=== PATIENT | female | born 1945 | race Caucasian/White ===

== ENCOUNTER 2019-08-18 08:56 | Inpatient (IN) | payer MEDICARE, BC ==
[~2019-08-18] VITALS: Ht 170.2 cm; Wt 72.7 kg
[2019-08-18 09:52] LABS: EOSINOPHILS # (AUTO) 0.2 X10'3 (0-0.9); HEMOGLOBIN 12.6 g/dl (12.0-16.0); MEAN CORPUSCULAR HGB CONC 34.7 g/dL (33.0-36.5); MONOCYTES # (AUTO) 0.5 X10'3 (0-0.9); RED CELL DISTRIBUTION WIDTH 13.1 % (11.5-14.5)
[2019-08-18 09:54] LABS: BASOPHILS % (AUTO) 0.8 % (0-1); EOSINOPHILS % (AUTO) 2.9 % (0-6); HEMATOCRIT 36.2 % (35.0-45.0); LYMPHOCYTES # (AUTO) 1.7 X10'3 (1.1-4.8); LYMPHOCYTES % (AUTO) 31.1 % (21-51); MEAN CORPUSCULAR HEMOGLOBIN 30.7 PG (27.0-31.0); MEAN CORPUSCULAR VOLUME 88.6 FL (78-98); MEAN PLATELET VOLUME 7.9 FL (7.4-10.4); MONOCYTES % (AUTO) 9.2 % (2-12); PLATELET COUNT 282 X10'3 (140-440); RED BLOOD COUNT 4.09 X10'6 (4.20-5.60); WHITE BLOOD COUNT 5.4 X10'3 (4.5-11.0)
[2019-08-18] MEDS ORDERED: LORazepam 2 mg/ml vial IV ONE (10:00)
[2019-08-18 10:02] LABS: PARTIAL THROMBOPLASTIN TIME 43 SECONDS (22-32)
[2019-08-18 10:04] LABS: ALANINE AMINOTRANSFERASE 36 U/L (12-78); ALBUMIN 3.6 G/DL (3.4-5.0); ALBUMIN/GLOBULIN RATIO 1.2 (1.1-1.5); ALKALINE PHOSPHATASE 73 IU/L (46-116); ANION GAP 6 (8-16); ASPARTATE AMINO TRANSFERASE 26 U/L (10-37); BILIRUBIN,TOTAL 0.3 MG/DL (0.1-1.0); BLOOD UREA NITROGEN 17 MG/DL (7-18); CALCIUM 8.2 MG/DL (8.5-10.1); CHLORIDE 105 MMOL/L (99-107); CREATININE 1.31 MG/DL (0.40-0.90); GLUCOSE 95 MG/DL (70-104); POTASSIUM 4.5 MMOL/L (3.5-5.1); SODIUM 137 MMOL/L (135-145); TOTAL CARBON DIOXIDE 25.6 MMOL/L (24-32); TOTAL PROTEIN 6.6 G/DL (6.4-8.2); eGFR 40 ML/MIN
[2019-08-18] MEDS ORDERED: normal saline 1000ML IV soln IVB ONE (10:35)
[2019-08-18] MEDS ORDERED: diltiazem 5mg/ml 5ml inj. IV ONE ×2 (10:35→11:10)
--- NOTE | 2019-08-18 11:11 | NUR ---
provider gave verbal order for 10mg of diltiazem
[2019-08-18] MEDS ORDERED: diltiazem-D5W 125mg/125ml 125 ML IV PRN (12:35)
[2019-08-18] MEDS: diltiazem-NS 100mg/100ml 100 ML IV PRN (13:17)
[2019-08-18] MEDS ORDERED: PROP10TA10 PO (13:28)
[2019-08-18] MEDS ORDERED: PROP40TA72 PO (13:28)
[2019-08-18] MEDS ORDERED: GUAI600T45 PO (13:30)
[2019-08-18] MEDS ORDERED: FEXO180T94 PO (13:31)
[2019-08-18] MEDS ORDERED: WARF5TAB PO (13:33)
[2019-08-18] MEDS ORDERED: WARF10TA50 PO (13:33)
[2019-08-18] MEDS ORDERED: ACET-2119 PO (13:52)
[2019-08-18] MEDS ORDERED: HYDROcodone/acetaminophen 10/325mg tab PO PRN (14:25)
[2019-08-18] MEDS ORDERED: HYDROcodone/acetaminophen 5mg/325mg tablet PO PRN (14:25)
[2019-08-18] MEDS ORDERED: ondansetron/PF 4mg/2ml inj IV PRN (14:25)
[2019-08-18] MEDS ORDERED: diltiazem-D5W 125mg/125ml 125 ML IV SCH (14:25)
[2019-08-18] MEDS ORDERED: metoclopramide 5 mg/ml inj IV PRN (14:25)
[2019-08-18] MEDS ORDERED: magnesium 2GM in 50ml NS 50 ML IV PRN (14:25)
[2019-08-18] MEDS ORDERED: magnesium Cl slow-release 64mg tablet PO PRN (14:25)
[2019-08-18] MEDS ORDERED: bisacodyl 10mg suppository rectal RC PRN (14:25)
[2019-08-18] MEDS ORDERED: magnesium 4gm in 100ml NS 100 ML IV PRN (14:25)
[2019-08-18] MEDS ORDERED: magnesium hydroxide 30ml (MOM) UD suspension PO PRN (14:25)
[2019-08-18] MEDS ORDERED: acetaminophen 325mg tablet PO PRN (14:25)
[2019-08-18] MEDS ORDERED: potassium CL 10mEq/100ml bag 100 ML IV PRN ×2 (14:25)
[2019-08-18] MEDS ORDERED: acetaminophen 650mg rectal suppository RC PRN (14:25)
[2019-08-18] MEDS ORDERED: potassium Cl 20 mEq SR tablet PO PRN ×2 (14:25)
--- NOTE | 2019-08-18 15:41 | NUR ---
Patient going to room 307. I have received report from CLOVIS Montero and had the opportunity to ask questions and assume patient care.
[2019-08-18 16:00] VITALS: BP 126/59
[2019-08-18] MEDS: normal saline 1000ml 1,000 ML IV SCH (16:00)
[2019-08-18 16:19] LABS: PHOSPHORUS 2.8 MG/DL (2.3-4.5)
[2019-08-18 18:00] VITALS: BP 136/69
--- NOTE | 2019-08-18 18:00 | NUR ---
Problems reprioritized. Patient report given, questions answered & plan of care reviewed with CLOVIS Bernardo.
--- NOTE | 2019-08-18 18:00 | NUR ---
Patient in room MED 307. I have received report from CLOVIS Eckert and had the opportunity to ask questions and assume patient care.
[2019-08-18] MEDS: docusate sod 100mg capsule PO SCH (19:26)
[2019-08-18 20:00] VITALS: BP 115/66
[2019-08-18] MEDS: K and/or MAG REPLACEMENT MC SCH (20:00)
[2019-08-18 22:00] VITALS: BP 135/76
[2019-08-18] MEDS: mag hydrox/Alum hydrox/simeth 30ml oral suspension PO PRN (22:38)
[2019-08-18] MEDS: temazepam 15mg capsule PO PRN (22:38)
[2019-08-19] VITALS (13 sets, daily range): BP systolic 116–147; BP diastolic 51–79
[2019-08-19] MEDS: acetaminophen 325mg tablet PO PRN ×2 (03:04→17:19)
[2019-08-19 03:26] LABS: PARTIAL THROMBOPLASTIN TIME 42 SECONDS (22-32)
[2019-08-19 03:28] LABS: ALANINE AMINOTRANSFERASE 31 U/L (12-78); ALBUMIN 3.2 G/DL (3.4-5.0); ALBUMIN/GLOBULIN RATIO 1.1 (1.1-1.5); ALKALINE PHOSPHATASE 67 IU/L (46-116); ANION GAP 6 (8-16); ASPARTATE AMINO TRANSFERASE 23 U/L (10-37); BILIRUBIN,TOTAL 0.2 MG/DL (0.1-1.0); BLOOD UREA NITROGEN 13 MG/DL (7-18); BUN/CREATININE RATIO 11.5 (6.6-38.0); CALCIUM 7.8 MG/DL (8.5-10.1); CHLORIDE 109 MMOL/L (99-107); CHOL/HDL RATIO 4.1 (0.00-4.99); CHOLESTEROL 169 MG/DL (0-200); CREATININE 1.13 MG/DL (0.40-0.90); GLUCOSE 92 MG/DL (70-104); HDL CHOLESTEROL 41 MG/DL (35-60); LDL CHOLESTEROL 84 MG/DL (50-100); MAGNESIUM 1.9 MG/DL (1.5-2.4); PHOSPHORUS 2.5 MG/DL (2.3-4.5); POTASSIUM 4.1 MMOL/L (3.5-5.1); SODIUM 140 MMOL/L (135-145); TOTAL CARBON DIOXIDE 25.4 MMOL/L (24-32); TRIGLYCERIDES 155 MG/DL (20-135); eGFR 47 ML/MIN
[2019-08-19] MEDS: diltiazem-NS 100mg/100ml 100 ML IV PRN ×2 (03:41→23:05)
[2019-08-19 03:53] LABS: BASOPHILS # (AUTO) 0.1 X10'3 (0-0.2); EOSINOPHILS # (AUTO) 0.2 X10'3 (0-0.9); EOSINOPHILS % (AUTO) 3.1 % (0-6); HEMATOCRIT 34.5 % (35.0-45.0); HEMOGLOBIN 11.9 g/dl (12.0-16.0); LYMPHOCYTES # (AUTO) 2.2 X10'3 (1.1-4.8); LYMPHOCYTES % (AUTO) 34.1 % (21-51); MEAN CORPUSCULAR HEMOGLOBIN 30.9 PG (27.0-31.0); MEAN CORPUSCULAR HGB CONC 34.5 g/dL (33.0-36.5); MEAN CORPUSCULAR VOLUME 89.7 FL (78-98); MEAN PLATELET VOLUME 8.1 FL (7.4-10.4); MONOCYTES # (AUTO) 0.6 X10'3 (0-0.9); MONOCYTES % (AUTO) 8.7 % (2-12); NEUTROPHILS # (AUTO) 3.5 X10'3 (1.8-7.7); NEUTROPHILS % (AUTO) 53.1 % (42-75); PLATELET COUNT 262 X10'3 (140-440); RED BLOOD COUNT 3.84 X10'6 (4.20-5.60); RED CELL DISTRIBUTION WIDTH 13.4 % (11.5-14.5); WHITE BLOOD COUNT 6.6 X10'3 (4.5-11.0)
[2019-08-19] MEDS: normal saline 1000ml 1,000 ML IV SCH ×2 (05:05→18:03)
--- NOTE | 2019-08-19 06:19 | NUR ---
Problems reprioritized. Patient report given, questions answered & plan of care reviewed with CLOVIS Silverio.
--- NOTE | 2019-08-19 06:20 | NUR ---
Patient in room MED 307. I have received report from CLOVIS Bernardo and had the opportunity to ask questions and assume patient care.
[2019-08-19] MEDS ORDERED: warfarin 5mg tablet PO SCH (08:00)
[2019-08-19] MEDS ORDERED: propranolol 10mg tablet PO SCH (08:00)
[2019-08-19] MEDS: K and/or MAG REPLACEMENT MC SCH ×2 (08:02→19:26)
[2019-08-19] MEDS: docusate sod 100mg capsule PO SCH ×2 (08:06→20:04)
[2019-08-19] MEDS ORDERED: magnesium 2GM in 50ml NS 50 ML IV ONE (10:35)
[2019-08-19] MEDS: propafenone 150mg tablet PO SCH ×3 (11:15→23:01)
--- NOTE | 2019-08-19 17:37 | NUR ---
Attempted to measure output all day with HAT in toilet. Patient "missed" the hat and I was not able to measure output accurately. Patient had numerous voids.
--- NOTE | 2019-08-19 18:10 | NUR ---
Patient in room MED 307. I have received report from Nusrat BRANNON and had the opportunity to ask questions and assume patient care.
--- NOTE | 2019-08-19 18:19 | NUR ---
Problems reprioritized. Patient report given, questions answered & plan of care reviewed with CLOVIS Birch.
[2019-08-19] MEDS: temazepam 15mg capsule PO PRN (23:01)
[2019-08-19] MEDS ORDERED: PROP150T2 (23:33)
[2019-08-20] VITALS (16 sets, daily range): BP systolic 125–148; BP diastolic 51–94
[2019-08-20 02:14] LABS: BASOPHILS % (AUTO) 0.5 % (0-1); EOSINOPHILS # (AUTO) 0.2 X10'3 (0-0.9); EOSINOPHILS % (AUTO) 3.1 % (0-6); HEMATOCRIT 33.7 % (35.0-45.0); HEMOGLOBIN 11.8 g/dl (12.0-16.0); LYMPHOCYTES % (AUTO) 29.2 % (21-51); MEAN CORPUSCULAR HEMOGLOBIN 31.1 PG (27.0-31.0); MEAN CORPUSCULAR HGB CONC 35.1 g/dL (33.0-36.5); MEAN CORPUSCULAR VOLUME 88.6 FL (78-98); MEAN PLATELET VOLUME 7.7 FL (7.4-10.4); MONOCYTES # (AUTO) 0.6 X10'3 (0-0.9); MONOCYTES % (AUTO) 8.5 % (2-12); NEUTROPHILS % (AUTO) 58.7 % (42-75); PARTIAL THROMBOPLASTIN TIME 37 SECONDS (22-32); PLATELET COUNT 270 X10'3 (140-440); RED CELL DISTRIBUTION WIDTH 13.2 % (11.5-14.5); WHITE BLOOD COUNT 6.9 X10'3 (4.5-11.0)
[2019-08-20 02:16] LABS: ALANINE AMINOTRANSFERASE 50 U/L (12-78); ALBUMIN 3.2 G/DL (3.4-5.0); ALBUMIN/GLOBULIN RATIO 1.1 (1.1-1.5); ALKALINE PHOSPHATASE 68 IU/L (46-116); ANION GAP 7 (8-16); ASPARTATE AMINO TRANSFERASE 38 U/L (10-37); BILIRUBIN,TOTAL 0.3 MG/DL (0.1-1.0); BLOOD UREA NITROGEN 14 MG/DL (7-18); BUN/CREATININE RATIO 12.3 (6.6-38.0); CALCIUM 8.1 MG/DL (8.5-10.1); CHLORIDE 109 MMOL/L (99-107); CREATININE 1.14 MG/DL (0.40-0.90); GLUCOSE 87 MG/DL (70-104); MAGNESIUM 1.9 MG/DL (1.5-2.4); PHOSPHORUS 2.8 MG/DL (2.3-4.5); POTASSIUM 4.3 MMOL/L (3.5-5.1); SODIUM 142 MMOL/L (135-145); TOTAL CARBON DIOXIDE 26.2 MMOL/L (24-32); eGFR 47 ML/MIN
[2019-08-20] MEDS: acetaminophen 325mg tablet PO PRN ×2 (04:01→16:33)
--- NOTE | 2019-08-20 06:00 | NUR ---
Patient in room MED 307. I have received report from CLOVIS Birch and had the opportunity to ask questions and assume patient care.
--- NOTE | 2019-08-20 06:16 | NUR ---
Problems reprioritized. Patient report given, questions answered & plan of care reviewed with Hero BRANNON.
--- NOTE | 2019-08-20 06:20 | NUR ---
Cardizem gtt off at 0618.
[2019-08-20] MEDS: K and/or MAG REPLACEMENT MC SCH ×2 (07:19→20:00)
[2019-08-20] MEDS: propafenone 150mg tablet PO SCH ×3 (07:19→21:13)
[2019-08-20] MEDS: docusate sod 100mg capsule PO SCH ×2 (07:19→20:00)
[2019-08-20] MEDS: normal saline 1000ml 1,000 ML IV SCH ×2 (09:15→22:48)
--- NOTE | 2019-08-20 11:05 | NUR ---
Left message for Shantal Henning to discuss patient HR increased to 130-140bpm.
--- NOTE | 2019-08-20 11:09 | NUR ---
Paged Dr. Storey regarding increased HR: "RM 307 Fabi Allen Patient HR 130s-140s x1 hour, Cardizem gtt off at 0620. Please call Danielle ASCENCIO [phone] thanks."
[2019-08-20] MEDS ORDERED: diltiazem 5mg/ml 5ml inj. IV ONE (11:30)
[2019-08-20] MEDS ORDERED: diltiazem-NS 100mg/100ml 100 ML IV SCH (11:30)
--- NOTE | 2019-08-20 12:00 | NUR ---
Per orders, restarted cardizem gtt at 1200 at 5mL/hr. Patient feeling short of breath, no feeling of heart palpitations. HR 144, BP 141/66. Will continue to monitor.
--- NOTE | 2019-08-20 16:22 | NUR ---
Patient converted from atrial fibrillation to normal sinus rhythm at 1622. HR 65 bpm.
--- NOTE | 2019-08-20 18:00 | NUR ---
Patient in room MED 307. I have received report from CLOVIS Santos and had the opportunity to ask questions and assume patient care.
--- NOTE | 2019-08-20 18:29 | NUR ---
Problems reprioritized. Patient report given, questions answered & plan of care reviewed with CLOVIS Bernardo.
[2019-08-20] MEDS: diltiazem 30mg tablet PO SCH ×2 (19:09→20:00)
[2019-08-20] MEDS ORDERED: warfarin 5mg tablet PO ONE (21:00)
[2019-08-20] MEDS: temazepam 15mg capsule PO PRN (23:46)
[2019-08-21 02:00] VITALS: BP 117/53
[2019-08-21] MEDS: diltiazem 30mg tablet PO SCH ×3 (02:11→13:02)
[2019-08-21 03:20] LABS: BASOPHILS % (AUTO) 0.6 % (0-1); EOSINOPHILS # (AUTO) 0.2 X10'3 (0-0.9); EOSINOPHILS % (AUTO) 3.3 % (0-6); HEMATOCRIT 31.3 % (35.0-45.0); HEMOGLOBIN 10.7 g/dl (12.0-16.0); LYMPHOCYTES # (AUTO) 1.5 X10'3 (1.1-4.8); LYMPHOCYTES % (AUTO) 23.3 % (21-51); MEAN CORPUSCULAR HEMOGLOBIN 30.9 PG (27.0-31.0); MEAN CORPUSCULAR HGB CONC 34.1 g/dL (33.0-36.5); MEAN CORPUSCULAR VOLUME 90.8 FL (78-98); MEAN PLATELET VOLUME 8.5 FL (7.4-10.4); MONOCYTES # (AUTO) 0.6 X10'3 (0-0.9); MONOCYTES % (AUTO) 9.1 % (2-12); NEUTROPHILS # (AUTO) 4.2 X10'3 (1.8-7.7); NEUTROPHILS % (AUTO) 63.7 % (42-75); PLATELET COUNT 229 X10'3 (140-440); RED BLOOD COUNT 3.45 X10'6 (4.20-5.60); RED CELL DISTRIBUTION WIDTH 13.2 % (11.5-14.5); WHITE BLOOD COUNT 6.6 X10'3 (4.5-11.0)
[2019-08-21] MEDS: mag hydrox/Alum hydrox/simeth 30ml oral suspension PO PRN (03:22)
[2019-08-21] MEDS: acetaminophen 325mg tablet PO PRN (03:22)
--- NOTE | 2019-08-21 03:30 | NUR ---
patient describing chest discomfort and pressure. EKG preformed. Read by DR. Mock. No noted changed. in sinus rhythm. Addendum: 08/21/19 at 0338 by Tova Emmanuel RN Patient stated she is passing gas and starting to feel better. She also asked for maalox to help with discomfort. and Tylenol for headache
[2019-08-21 03:38] LABS: PARTIAL THROMBOPLASTIN TIME 33 SECONDS (22-32)
[2019-08-21 03:43] LABS: ALANINE AMINOTRANSFERASE 167 U/L (12-78); ALBUMIN 3.1 G/DL (3.4-5.0); ALBUMIN/GLOBULIN RATIO 1.2 (1.1-1.5); ALKALINE PHOSPHATASE 80 IU/L (46-116); ANION GAP 6 (8-16); ASPARTATE AMINO TRANSFERASE 170 U/L (10-37); BILIRUBIN,TOTAL 0.3 MG/DL (0.1-1.0); BLOOD UREA NITROGEN 19 MG/DL (7-18); BUN/CREATININE RATIO 14.7 (6.6-38.0); CALCIUM 7.9 MG/DL (8.5-10.1); CHLORIDE 108 MMOL/L (99-107); CREATININE 1.29 MG/DL (0.40-0.90); GLUCOSE 88 MG/DL (70-104); MAGNESIUM 1.7 MG/DL (1.5-2.4); PHOSPHORUS 3.3 MG/DL (2.3-4.5); POTASSIUM 4.1 MMOL/L (3.5-5.1); SODIUM 138 MMOL/L (135-145); TOTAL CARBON DIOXIDE 23.8 MMOL/L (24-32); TOTAL PROTEIN 5.6 G/DL (6.4-8.2); eGFR 41 ML/MIN
[2019-08-21 06:00] VITALS: BP 106/62
--- NOTE | 2019-08-21 06:17 | NUR ---
Problems reprioritized. Patient report given, questions answered & plan of care reviewed with CLOVIS Muse.
--- NOTE | 2019-08-21 06:48 | NUR ---
Patient in room MED 307. I have received report from CLOVIS HALLMAN and had the opportunity to ask questions and assume patient care.
[2019-08-21] MEDS: docusate sod 100mg capsule PO SCH (08:00)
[2019-08-21] MEDS: propafenone 150mg tablet PO SCH ×2 (08:35→13:00)
[2019-08-21] MEDS: K and/or MAG REPLACEMENT MC SCH (08:40)
[2019-08-21] MEDS ORDERED: DILT-35 PO (10:24)
[2019-08-21 11:00] VITALS: BP 138/49
--- NOTE | 2019-08-21 11:44 | NUR ---
New prescription called to patient's preferred pharmacy, [facility] in [place], [place]. Due to the holiday, unable to speak with pharmacy staff, voicemail left with pharmacy including [facility] contact info if any clarification is needed by the pharmacist.
--- NOTE | 2019-08-21 12:00 | NUR ---
reviewed all discharge instructions,medications,and f/u appts.with pt and .ELBA dcd 'd from [facility] ,site clear,dc'd home with all belongings
[2019-08-21] MEDS ORDERED: warfarin 3mg tablet PO ONE (21:00)
== END 2019-08-21 13:00 | disposition home or self-care (01) | DRG 309 ==
LOC: ER 08:57 → ED HOLD 14:30 → MED 3N 15:35
PROVIDERS: ADMIT Family Medicine; ATTEND Family Medicine
DX: I48.0 Paroxysmal atrial fibrillation (principal); Q87.81 Alport syndrome; D68.9 Coagulation defect, unspecified; E78.1 Pure hyperglyceridemia; E78.5 Hyperlipidemia, unspecified; G47.00 Insomnia, unspecified; I12.9 Hypertensive chronic kidney disease with stage 1 through stage 4 chronic kidney disease, or unspecified chronic kidney disease; K44.9 Diaphragmatic hernia without obstruction or gangrene; K57.90 Diverticulosis of intestine, part unspecified, without perforation or abscess without bleeding; R74.0 Nonspecific elevation of levels of transaminase and lactic acid dehydrogenase [LDH]; J45.909 Unspecified asthma, uncomplicated; K21.9 Gastro-esophageal reflux disease without esophagitis; N18.3 Chronic kidney disease, stage 3 (moderate); Z79.01 Long term (current) use of anticoagulants; Z87.19 Personal history of other diseases of the digestive system; Z90.710 Acquired absence of both cervix and uterus; Z88.8 Allergy status to other drugs, medicaments and biological substances; Z79.899 Other long term (current) drug therapy
CPT/HCPCS: 36415; 71045; 80053; 80061; 83735; 84100; 84145; 84443; 84484; 85025; 85610; 85730; 87081; 93005; 93306; 96361; 96374; 99285; G0378; J2060; J3475; J3490; J7030

== ENCOUNTER 2019-12-26 11:20 | Emergency (ER) | payer MEDICARE, BC ==
[~2019-12-26] VITALS: Ht 170.2 cm; Wt 72.7 kg
[~2019-12-26 11:20] MED LIST: ACET-2119 PO; DILT-35 PO; FEXO180T94 PO; GUAI600T45 PO; LIDOcaine 1% W/epiNEPHrine 1:100,000 20ml vial ONE; PROP150T2; WARF5TAB PO
[2019-12-26 13:34] VITALS: BP 158/82
== END 2019-12-26 14:02 | disposition home or self-care (01) ==
LOC: ER 11:21
DX: S61.412A Laceration without foreign body of left hand, initial encounter (principal); I48.91 Unspecified atrial fibrillation; J45.909 Unspecified asthma, uncomplicated; Z90.710 Acquired absence of both cervix and uterus; Z88.8 Allergy status to other drugs, medicaments and biological substances; Z79.899 Other long term (current) drug therapy; W01.0XXA Fall on same level from slipping, tripping and stumbling without subsequent striking against object, initial encounter; Y93.89 Activity, other specified; Y92.89 Other specified places as the place of occurrence of the external cause; Y99.8 Other external cause status
CPT/HCPCS: 12001; 73130; 99284

== ENCOUNTER 2021-05-05 14:27 | Emergency (ER) | payer MEDICARE, BC ==
[~2021-05-05] VITALS: Ht 167.6 cm; Wt 72.7 kg
[~2021-05-05 14:27] MED LIST changes: -LIDOcaine 1% W/epiNEPHrine 1:100,000 20ml vial ONE; -PROP150T2; +PROP150T2 PO; -WARF5TAB PO; +WARF5TAB2 PO
[2021-05-05] MEDS ORDERED: diltiazem 5mg/ml 5ml inj. IV ONE (14:50)
[2021-05-05] MEDS ORDERED: diltiazem-D5W 125mg/125ml 125 ML IV ONE (14:50)
[2021-05-05] MEDS ORDERED: diltiazem-NS 100mg/100ml 100 ML IV ONE (14:53)
--- NOTE | 2021-05-05 14:59 | NUR ---
Pt reports receiving cardizem in 2019 and after conversion pt reports she had band tightening like pressure around chest and SOB. MD Daley informed of pt report of info, received VO to hold Cardizem till further instruction.
[2021-05-05 15:09] LABS: BASOPHILS # (AUTO) 0.1 X10'3 (0-0.2); BASOPHILS % (AUTO) 0.7 % (0-1); EOSINOPHILS # (AUTO) 0.2 X10'3 (0-0.9); HEMOGLOBIN 12.2 g/dl (12.0-16.0); LYMPHOCYTES # (AUTO) 1.4 X10'3 (1.1-4.8); LYMPHOCYTES % (AUTO) 15.7 % (21-51); MEAN CORPUSCULAR HEMOGLOBIN 30.2 PG (27.0-31.0); MEAN CORPUSCULAR HGB CONC 33.7 g/dL (33.0-36.5); MEAN CORPUSCULAR VOLUME 89.5 FL (78-98); MEAN PLATELET VOLUME 7.6 FL (7.4-10.4); MONOCYTES # (AUTO) 0.7 X10'3 (0-0.9); MONOCYTES % (AUTO) 8.4 % (2-12); NEUTROPHILS # (AUTO) 6.3 X10'3 (1.8-7.7); NEUTROPHILS % (AUTO) 73.2 % (42-75); PLATELET COUNT 361 X10'3 (140-440); RED BLOOD COUNT 4.03 X10'6 (4.20-5.60); RED CELL DISTRIBUTION WIDTH 13.5 % (11.5-14.5); WHITE BLOOD COUNT 8.7 X10'3 (4.5-11.0)
[2021-05-05] MEDS ORDERED: propofol 10mg/ml 20ml vial IV ONE (15:10)
[2021-05-05] MEDS ORDERED: normal saline 1000ML IV soln IVB ONE (15:10)
[2021-05-05] MEDS ORDERED: ondansetron/PF 4mg/2ml inj IV ONE (15:15)
[2021-05-05 15:23] LABS: ALANINE AMINOTRANSFERASE 75 U/L (12-78); ALBUMIN 3.5 G/DL (3.4-5.0); ALBUMIN/GLOBULIN RATIO 1.1 (1.1-1.5); ALKALINE PHOSPHATASE 91 IU/L (46-116); ANION GAP 11 (8-16); ASPARTATE AMINO TRANSFERASE 52 U/L (10-37); BILIRUBIN,TOTAL 0.5 MG/DL (0.1-1.0); BLOOD UREA NITROGEN 25 MG/DL (7-18); BUN/CREATININE RATIO 19.8 (6.6-38.0); CALCIUM 8.5 MG/DL (8.5-10.1); CHLORIDE 100 MMOL/L (99-107); CREATININE 1.26 MG/DL (0.40-0.90); GLUCOSE 125 MG/DL (70-104); POTASSIUM 4.6 MMOL/L (3.5-5.1); SODIUM 137 MMOL/L (135-145); TOTAL CARBON DIOXIDE 25.6 MMOL/L (24-32); TOTAL PROTEIN 6.7 G/DL (6.4-8.2); eGFR 42 ML/MIN
[2021-05-05 17:06] VITALS: BP 148/71
[2021-05-21] MEDS ORDERED: MOME0.24 INH (23:04)
[2021-05-21] MEDS ORDERED: DEXL60CA3 PO (23:08)
[2021-05-21] MEDS ORDERED: NITR0.4T51 SL (23:17)
[2021-05-21] MEDS ORDERED: LEVA1.2544 NEB (23:19)
[2021-05-22] MEDS ORDERED: PREVCR VG (05:44)
[2021-05-22] MEDS ORDERED: ALPR0.5T9 PO (05:45)
[2021-05-22] MEDS ORDERED: AZIL1TAB2 PO (09:45)
== END 2021-05-05 17:08 | disposition home or self-care (01) ==
LOC: ER 14:28
DX: I48.20 Chronic atrial fibrillation, unspecified (principal); R42 Dizziness and giddiness; J45.909 Unspecified asthma, uncomplicated; N19 Unspecified kidney failure; Z90.710 Acquired absence of both cervix and uterus; Z98.890 Other specified postprocedural states; Z88.8 Allergy status to other drugs, medicaments and biological substances; Z79.01 Long term (current) use of anticoagulants; Z79.899 Other long term (current) drug therapy
CPT/HCPCS: 36415; 71045; 80053; 83735; 83880; 84484; 85025; 92960; 93005; 94799; 96374; 99285; J2405; J7030; 94760

== ENCOUNTER 2021-05-25 10:06 | Day surgery (SDC) | payer MEDICARE, BC ==
[2021-05-21 15:08] LABS: BASOPHILS % (AUTO) 0.2 % (0-1); EOSINOPHILS % (AUTO) 0.1 % (0-6); HEMATOCRIT 39.7 % (35.0-45.0); HEMOGLOBIN 14.2 g/dl (12.0-16.0); LYMPHOCYTES % (AUTO) 10.8 % (21-51); MEAN CORPUSCULAR HEMOGLOBIN 30.6 PG (27.0-31.0); MEAN CORPUSCULAR HGB CONC 35.6 g/dL (33.0-36.5); MEAN CORPUSCULAR VOLUME 85.8 FL (78-98); MEAN PLATELET VOLUME 8.2 FL (7.4-10.4); MONOCYTES # (AUTO) 0.7 X10'3 (0-0.9); MONOCYTES % (AUTO) 7.6 % (2-12); NEUTROPHILS # (AUTO) 7.4 X10'3 (1.8-7.7); NEUTROPHILS % (AUTO) 81.3 % (42-75); PLATELET COUNT 494 X10'3 (140-440); RED BLOOD COUNT 4.63 X10'6 (4.20-5.60); RED CELL DISTRIBUTION WIDTH 12.7 % (11.5-14.5); WHITE BLOOD COUNT 9.1 X10'3 (4.5-11.0)
[2021-05-21 15:09] LABS: PARTIAL THROMBOPLASTIN TIME 52 SECONDS (22-32)
[2021-05-21 15:12] LABS: ALANINE AMINOTRANSFERASE 31 U/L (12-78); ALBUMIN 3.7 G/DL (3.4-5.0); ALBUMIN/GLOBULIN RATIO 1.1 (1.1-1.5); ALKALINE PHOSPHATASE 102 IU/L (46-116); ANION GAP 8 (8-16); ASPARTATE AMINO TRANSFERASE 19 U/L (10-37); BILIRUBIN,TOTAL 0.7 MG/DL (0.1-1.0); BLOOD UREA NITROGEN 23 MG/DL (7-18); BUN/CREATININE RATIO 14.8 (6.6-38.0); CHLORIDE 79 MMOL/L (99-107); CREATININE 1.55 MG/DL (0.40-0.90); GLUCOSE 139 MG/DL (70-104); POTASSIUM 3.9 MMOL/L (3.5-5.1); TOTAL CARBON DIOXIDE 23.9 MMOL/L (24-32); TOTAL PROTEIN 7.2 G/DL (6.4-8.2); eGFR 33 ML/MIN
[2021-05-21 15:29] LABS: SODIUM 111 MMOL/L (135-145)
[2021-05-24 11:07] LABS: MAGNESIUM 2.1 MG/DL (1.5-2.4)
[~2021-05-25] VITALS: Ht 157.5 cm; Wt 71.8 kg
[2021-05-25] VITALS (12 sets, daily range): BP systolic 91–168; BP diastolic 41–126
[~2021-05-25 10:06] MED LIST changes: -ACET-2119 PO; +ALPR0.5T9 PO; +DEXL60CA3 PO; -DILT-35 PO; -GUAI600T45 PO; +LEVA1.2544 NEB; +LOSA25TA96 PO; +MOME0.24 INH; +NITR0.4T51 SL; +PREVCR VG
[2021-05-25] MEDS ORDERED: normal saline 1000ml 1,000 ML IV SCH (10:25)
[2021-05-25] MEDS ORDERED: MIDAZolam 1mg/ml 10ml vial IV ONE (10:25)
[2021-05-25] MEDS ORDERED: morphine 10mg/ml inj. IV ONE (10:35)
[2021-05-25] MEDS ORDERED: LOSA50TA3 PO (10:55)
[2021-05-25] MEDS ORDERED: MAGN250T11 PO (11:03)
[2021-05-25] MEDS ORDERED: ASCO-139 PO (11:03)
[2021-05-25] MEDS ORDERED: calcium mag zinc (11:03)
[2021-05-25] MEDS ORDERED: Nasocort (11:03)
[2021-05-25] MEDS ORDERED: MULT-1085 PO (11:03)
[2021-05-25] MEDS ORDERED: LACT1CAP77 (11:03)
[2021-05-25] MEDS ORDERED: ASCO1TAB42 (11:03)
== END 2021-05-25 14:30 | disposition home or self-care (01) ==
LOC: SSTAY O 10:06
PROVIDERS: ATTEND Internal Medicine Interventional Cardiology
DX: I48.0 Paroxysmal atrial fibrillation (principal); J45.909 Unspecified asthma, uncomplicated; I10 Essential (primary) hypertension; I34.8 Other nonrheumatic mitral valve disorders; E78.5 Hyperlipidemia, unspecified; Q87.81 Alport syndrome; Z88.8 Allergy status to other drugs, medicaments and biological substances; Z79.899 Other long term (current) drug therapy; Z79.01 Long term (current) use of anticoagulants
CPT/HCPCS: 36415; 80053; 83735; 85025; 85610; 85730; 87081; 92960; 93005; 94799; J2250; J2270; J7030

== ENCOUNTER 2021-07-14 12:33 | Emergency (ER) | payer MEDICARE, BC ==
[~2021-07-14] VITALS: Ht 167.6 cm; Wt 71.2 kg
[~2021-07-14 12:33] MED LIST changes: +ASCO-139 PO; +ASCO1TAB42; -DEXL60CA3 PO; +LACT1CAP77; -LEVA1.2544 NEB; -LOSA25TA96 PO; +LOSA50TA3 PO; +MAGN250T11 PO; +MULT-1085 PO; +Nasocort; +calcium mag zinc
[2021-07-14 13:47] LABS: BASOPHILS % (AUTO) 0.5 % (0-1); EOSINOPHILS # (AUTO) 0.1 X10'3 (0-0.9); EOSINOPHILS % (AUTO) 0.9 % (0-6); HEMATOCRIT 35.5 % (35.0-45.0); LYMPHOCYTES # (AUTO) 1.3 X10'3 (1.1-4.8); LYMPHOCYTES % (AUTO) 20.6 % (21-51); MEAN CORPUSCULAR HGB CONC 33.7 g/dL (33.0-36.5); MEAN CORPUSCULAR VOLUME 88.9 FL (78-98); MEAN PLATELET VOLUME 7.5 FL (7.4-10.4); MONOCYTES # (AUTO) 0.6 X10'3 (0-0.9); MONOCYTES % (AUTO) 9.6 % (2-12); NEUTROPHILS # (AUTO) 4.3 X10'3 (1.8-7.7); NEUTROPHILS % (AUTO) 68.4 % (42-75); PLATELET COUNT 308 X10'3 (140-440); RED BLOOD COUNT 3.99 X10'6 (4.20-5.60); RED CELL DISTRIBUTION WIDTH 13.9 % (11.5-14.5); WHITE BLOOD COUNT 6.2 X10'3 (4.5-11.0)
[2021-07-14 13:57] LABS: ALANINE AMINOTRANSFERASE 33 U/L (12-78); ALBUMIN 3.9 G/DL (3.4-5.0); ALBUMIN/GLOBULIN RATIO 1.1 (1.1-1.5); ALKALINE PHOSPHATASE 73 IU/L (46-116); ANION GAP 10 (8-16); ASPARTATE AMINO TRANSFERASE 30 U/L (10-37); BILIRUBIN,TOTAL 0.4 MG/DL (0.1-1.0); BLOOD UREA NITROGEN 16 MG/DL (7-18); BUN/CREATININE RATIO 16.8 (6.6-38.0); CHLORIDE 103 MMOL/L (99-107); CREATININE 0.95 MG/DL (0.40-0.90); GLUCOSE 96 MG/DL (70-104); POTASSIUM 4.4 MMOL/L (3.5-5.1); SODIUM 141 MMOL/L (135-145); TOTAL CARBON DIOXIDE 27.9 MMOL/L (24-32); TOTAL PROTEIN 7.3 G/DL (6.4-8.2); eGFR 58 ML/MIN
[2021-07-14] MEDS ORDERED: normal saline 1000ML IV soln IVB ONE (18:20)
[2021-07-14] MEDS ORDERED: aspirin 325mg tablet PO ONE (18:20)
[2021-07-14] MEDS ORDERED: diltiazem 5mg/ml 5ml inj. IV ONE (18:20)
[2021-07-14] MEDS ORDERED: iohexol 350MG/ML 100ml bottle IV ONE (18:51)
--- NOTE | 2021-07-14 18:54 | NUR ---
Patient resting comfortably in bed with at bedside. She has no complaint at this time.
[2021-07-14] MEDS: metoprolol tartrate 1mg/ml inj IV SCH ×3 (19:42→20:25)
[2021-07-14] MEDS ORDERED: adenosine 3mg/ml 2ml vial IV ONE (20:30)
[2021-07-14] MEDS ORDERED: propofol 10mg/ml 20ml vial IV ONE (20:50)
[2021-07-14] MEDS ORDERED: metoprolol succinate 25mg (24-HOUR) SR. Tablet PO ONE (21:25)
[2021-07-14] MEDS ORDERED: levoFLOXACIN 750MG TABLET PO ONE (21:30)
[2021-07-14] MEDS ORDERED: LEVO500T90 PO (21:30)
--- NOTE | 2021-07-14 21:37 | NUR ---
propofol given by MD. See moderate sedation charting for dose and time.
[2021-07-14 22:05] VITALS: BP 137/83
== END 2021-07-14 22:07 | disposition home or self-care (01) ==
LOC: ER 12:34
DX: I48.92 Unspecified atrial flutter (principal); J18.9 Pneumonia, unspecified organism; J90 Pleural effusion, not elsewhere classified; R00.2 Palpitations; R07.89 Other chest pain; I48.91 Unspecified atrial fibrillation; I10 Essential (primary) hypertension; J45.909 Unspecified asthma, uncomplicated; Z90.710 Acquired absence of both cervix and uterus; Z98.890 Other specified postprocedural states; Z88.5 Allergy status to narcotic agent; Z88.8 Allergy status to other drugs, medicaments and biological substances; Z79.899 Other long term (current) drug therapy
CPT/HCPCS: 36415; 71045; 71275; 80053; 83880; 84145; 84484; 85025; 85610; 92960; 93005; 94799; 96361; 96374; 96375; 99285; J0153; J7030; Q9967; 94760; J3490

== ENCOUNTER 2024-08-01 21:27 | Emergency (ER) | payer MEDICARE, BC ==
[~2024-08-01] VITALS: Ht 167.6 cm; Wt 68.0 kg
[~2024-08-01 21:27] MED LIST changes: -ASCO1TAB42; +CHOL10006 PO; +DEXL60CA3 PO; -LACT1CAP77; +LACT1CAP77 PO; +LEVA15HF9 INH; +LOSA100T58 PO; -LOSA50TA3 PO; -MOME0.24 INH; -MULT-1085 PO; -Nasocort; +SACU1TAB7 PO; +SODI1TAB2 PO; +TRIA10.8 BOTHNARES; -WARF5TAB2 PO; -calcium mag zinc; +calcium mag zinc PO
[2024-08-01 21:35] VITALS: TEMP 98
[2024-08-01 23:14] LABS: BASOPHILS % (AUTO) 0.3 % (0-1); EOSINOPHILS % (AUTO) 0.1 % (0-6); HEMATOCRIT 30.2 % (35.0-45.0); HEMOGLOBIN 10.5 g/dl (12.0-16.0); LYMPHOCYTES # (AUTO) 0.4 X10'3 (1.1-4.8); LYMPHOCYTES % (AUTO) 7.6 % (21-51); MEAN CORPUSCULAR HEMOGLOBIN 30.8 PG (27.0-31.0); MEAN CORPUSCULAR HGB CONC 34.8 g/dL (33.0-36.5); MEAN CORPUSCULAR VOLUME 88.5 FL (78-98); MEAN PLATELET VOLUME 7.8 FL (7.4-10.4); MONOCYTES # (AUTO) 0.7 X10'3 (0-0.9); MONOCYTES % (AUTO) 13.6 % (2-12); NEUTROPHILS % (AUTO) 78.4 % (42-75); PLATELET COUNT 190 X10'3 (140-440); RED BLOOD COUNT 3.42 X10'6 (4.20-5.60); WHITE BLOOD COUNT 5.2 X10'3 (4.5-11.0)
[2024-08-01 23:24] LABS: ALANINE AMINOTRANSFERASE 97 U/L (12-78); ALBUMIN 3.6 G/DL (3.4-5.0); ALBUMIN/GLOBULIN RATIO 1.1 (1.1-1.5); ALKALINE PHOSPHATASE 77 IU/L (46-116); ANION GAP 8 (8-16); APTT 53 SECONDS (22-32); ASPARTATE AMINO TRANSFERASE 101 U/L (10-37); BILIRUBIN,TOTAL 0.8 MG/DL (0.1-1.0); BLOOD UREA NITROGEN 9 MG/DL (7-18); BUN/CREATININE RATIO 8.5 (10.0-20.0); CALCIUM 8.1 MG/DL (8.5-10.1); CHLORIDE 91 MMOL/L (99-107); CREATININE 1.06 MG/DL (0.40-0.90); GLUCOSE 120 MG/DL (70-104); POTASSIUM 4.3 MMOL/L (3.5-5.1); PROTHROMBIN TIME 42.4 SECONDS (9.0-12.0); SODIUM 125 MMOL/L (135-145); TOTAL CARBON DIOXIDE 26.4 MMOL/L (24-32); TOTAL PROTEIN 6.8 G/DL (6.4-8.2); eCRCL 42 ML/MIN; eGFR 50 ML/MIN
[2024-08-01 23:29] LABS: BILIRUBIN,DIRECT 0.3 MG/DL (0-0.3); MAGNESIUM 1.6 MG/DL (1.5-2.4); PRO BRAIN NATRIURETIC PEPTIDE 3150 PG/ML (0-450)
[2024-08-01 23:33] LABS: INR 4.5 INR
[2024-08-01] MEDS: normal saline 1000ML IV soln IVB ONE (23:53)
[2024-08-02] MEDS ORDERED: ONDA-245 PO (00:28)
[2024-08-02 00:35] LABS: BILIRUBIN,URINE NEGATIVE (Neg); CLARITY,URINE SLIGHTLY CLOUDY (Clear); COLOR,URINE YELLOW (Yellow); GLUCOSE, URINE NEGATIVE (Neg); KETONES,URINE 15 mg/dl (Neg); LEUKOCYTE ESTERASE ,URINE NEGATIVE (Neg); NITRITES, URINE NEGATIVE (Neg); OCCULT BLOOD,URINE MODERATE (Neg); PH,URINE 7.5 (4.8-8.0); PROTEIN,URINE >=300 mg/dl (Neg); UROBILINOGEN,URINE 0.2 E.U/dL (0.2-1.0)
[2024-08-02] MEDS: ondansetron/PF 4mg/2ml inj IV ONE (00:36)
[2024-08-02 00:38] LABS: UA COLLECTION TYPE CLN CATCH MIDSTREAM
[2024-08-02 00:39] LABS: SQUAMOUS EPITHELIAL CELL,UR MODERATE /LPF (FEW)
[2024-08-02 00:40] LABS: BACTERIA,URINE 1+ /HPF (Neg); WBC,URINE 0-4 /HPF (0-4)
[2024-08-02 01:00] VITALS: BP 187/71; PULSE 80; RESP 13; O2SAT 92
== END 2024-08-02 01:36 | disposition home or self-care (01) ==
LOC: ER 21:28
DX: E86.0 Dehydration (principal); R11.2 Nausea with vomiting, unspecified; R79.1 Abnormal coagulation profile; I48.91 Unspecified atrial fibrillation; I11.0 Hypertensive heart disease with heart failure; I50.9 Heart failure, unspecified; J45.909 Unspecified asthma, uncomplicated; Z90.710 Acquired absence of both cervix and uterus; Z88.5 Allergy status to narcotic agent; Z88.8 Allergy status to other drugs, medicaments and biological substances; Z79.899 Other long term (current) drug therapy
CPT/HCPCS: 36415; 80048; 80076; 81001; 83735; 83880; 85025; 85610; 85730; 93005; 96374; 99284; J2405; J7030